=== PATIENT | male | born 1985 | race Caucasian/White ===

== ENCOUNTER 2016-02-18 12:27 | Emergency (ER) | payer OTHER ==
[~2016-02-18] VITALS: Ht 182.9 cm; Wt 115.7 kg
[~2016-02-18 12:27] MED LIST: IBU800 MG PO
--- NOTE | 2016-02-18 15:50 | ED UPPER/LOWER EXTREMITY COMPL ---
History of Present Illness General Chief Complaint: Lower Extremity Problems Stated Complaint: RIGHT FOOT PAIN Source: patient Exam Limitations: no limitations Vital Signs & Intake/Output Vital Signs & Intake/Output Vital Signs Date Time Temp Pulse Resp B/P Pulse O2 O2 Flow FiO2 Ox Delivery Rate 02/17 1242 98.6 82 16 143/88 97 Room Air Allergies Coded Allergies: NO KNOWN ALLERGIES (10/14/12) Reconcile Medications Colchicine 0.6 MG TABLET 1 TAB PO AD GOUT 2 TABS PO NOW, 1 TAB IN 1 HOUR, THEN 1 TAB PO BID Ibuprofen (Ibu) 800 MG TAB 1 TAB PO TID PAIN/SWELLING Indomethacin 50 MG CAPSULE 1 CAP PO TID PRN PAIN with food Oxycodone HCl/Acetaminophen (Percocet 5-325 MG Tablet) 5 MG-325 MG TABLET 1 TAB PO TID PRN PAIN Triage Note: PT TO TRIAGE WITH C/O R ANKLE SWELLING AND PAIN 10/ SINCE THIS MORNING. DENIES ANY INJURY. ?GOUT. PTS FATHER AND BROTHER HAVE HX OF GOUT. Triage Nurses Notes Reviewed? yes HPI: WOKE WITH SEVERE R SIDE ANKLE AND FOOT PAIN, NO TRAUMA. HX OF SAME 1 YEAR AGO. NO DIAGNOSIS WAS MAKE. TX WITH ALEVE WITHOUT RELIEF. UNABLE TO WALK DUE TO THE PAIN. HAS PAIN AT REST THAT IS POSITIONAL. He complains of swelling to the dorsum of the foot in pain when moving his great toe. His father and brother both have gout. States he has been drinking a lot of beer recently. Patient notes that when he woke up this morning the weight of the bed sheets were causing severe pain to his foot and toe Past History Travel History Traveled to [place] past 21 day No Medical History Any Pertinent Medical History? none Surgical History Surgical History: none Psychosocial History What is your primary language French Tobacco Use: Never used Family History Hx Contributory? No Review of Systems Review of Systems Constitutional: Reports: see HPI. EENTM: Reports: no symptoms. Respiratory: Reports: no symptoms. Cardiovascular: Reports: no symptoms. Gastrointestinal/Abdominal: Reports: no symptoms. Genitourinary: Reports: no symptoms. Musculoskeletal: Reports: see HPI. Skin: Reports: no symptoms. Neurological/Psychological: Reports: no symptoms. Hematologic/Endocrine: Reports: no symptoms. Immunological: Reports: no symptoms. All Other Systems: Reviewed and Negative Physical Exam Physical Exam General Appearance: well developed/nourished Comments: Well-developed well-nourished no apparent distress. HEENT: Atraumatic, extraocular motion intact Neck: Supple, no lymphadenopathy Back: Nontender Respiratory: No respiratory distress Extremities: No edema, full range of motion Neuro: Alert and oriented x3 Psych: Mood affect normal, normal memory normal judgment. Skin: Warm and dry, no rash on exposed skin Bilateral lower extremities examined, right lower extremity, right foot dorsum, first metatarsal pharyngeal joint with moderate swelling and moderate warmth. Increased pain with range of motion of the first metatarsal pharyngeal joint . Minimal pain of range of motion of the second. Neurovascularly intact. No ecchymosis. There is mild swelling noted throughout the dorsum of the foot. There is no erythema Progress Differential Diagnosis: arterial insufficiency, cellulitis, CHF, compartment syndrome, contusion, dislocation, DVT, fracture, gout, septic arthritis, sprain, tendon injury Plan of Care: Orders Procedure Date/time Status Durable Medical Equipment 02/17 1601 Active Comments: Signs and symptoms consistent with gout, treated with Toradol 30 mg IM and 1 Percocet, given crutches. Elevation, ice, colchicine and indomethacin and Percocet prescribed, recommend following up with primary care doctor if no better in 5 days Departure Departure Disposition: HOME OR SELF CARE Condition: Stable Clinical Impression Primary Impression: Gout Qualifiers: Gout site: foot Gout etiology: idiopathic Laterality: right Chronicity: acute Qualified Code: M10.071 - Idiopathic gout, right ankle and foot Referrals: SAUNDRA COLÓN,BUZZ JONES (PCP/Family) Additional Instructions: Ice, elevate, avoid foods such as redness, shellfish, beer, cheese Take indomethacin for inflammation, Percocet for pain and colchicine for treatment of gout. Use crutches as needed for the next few days. Symptoms will last for about 3-5 days. Follow-up with your primary care doctor or orthopedist if no better after that Departure Forms: Customer Survey General Discharge Information Prescriptions: Current Visit Scripts Oxycodone HCl/Acetaminophen (Percocet 5-325 MG Tablet) 1 TAB PO TID PRN PAIN #15 TAB Colchicine 1 TAB PO AD #10 TAB 2 TABS PO NOW, 1 TAB IN 1 HOUR, THEN 1 TAB PO BID Indomethacin 1 CAP PO TID PRN PAIN #30 CAP with food
[2016-02-18] MEDS ORDERED: PERCOCET 5-3251 EACH PO (16:05)
[2016-02-18] MEDS ORDERED: COLCHICINE0.6 M2 PO (16:05)
[2016-02-18] MEDS ORDERED: INDOMETHACIN50 M1 PO (16:05)
[2016-02-18 16:18] VITALS: BP 126/85
== END 2016-02-18 16:19 ==
LOC: ERH 12:27
DX: M10.9 Gout, unspecified (principal)
CPT/HCPCS: 96372; J1885

== ENCOUNTER 2016-03-13 20:56 | Emergency (ER) | payer OTHER ==
[~2016-03-13] VITALS: Ht 180.3 cm; Wt 115.7 kg
[~2016-03-13 20:56] MED LIST changes: +COLCHICINE0.6 M2 PO; +INDOMETHACIN50 M1 PO; +PERCOCET 5-3251 EACH PO
[2016-03-13 21:07] VITALS: BP 143/87
[2016-03-13] MEDS ORDERED: INDOMETHACIN50 M1 PO (21:27)
[2016-03-13] MEDS ORDERED: COLCHICINE0.6 M2 PO (21:27)
--- NOTE | 2016-03-13 21:28 | ED UPPER/LOWER EXTREMITY COMPL ---
History of Present Illness General Chief Complaint: General Adult Stated Complaint: GOUT Source: patient Exam Limitations: no limitations Allergies Coded Allergies: NO KNOWN ALLERGIES (10/14/12) Triage Note: PRESENTS TO ED FOR EVALUATION OF POSSIBLE GOUT OF THE RIGHT FOOT. + HX OF THE SAME. Triage Nurses Notes Reviewed? yes HPI: This patient is a 31-year-old male with a past medical history including gout who presented to the emergency department today for evaluation of pain in his right ankle. The patient reported that yesterday he started to feel a tightness in his ankle which progressed to a slight pain in the evening. The patient woke up this morning with 8 out of 10, throbbing pain in the outside of his right ankle. The patient denied any pain in his foot or toes. He denied any trauma to the area. The patient reported that he was treated for gout approximately 3 weeks ago. The patient reported that he thinks that this may be another episode of gout. The patient denied any calf pain, knee pain, or hip pain. No fevers or chills. The patient took a naproxen this morning. (YAEL MORRIS,LINCOLN) Vital Signs & Intake/Output Vital Signs & Intake/Output Vital Signs Date Time Temp Pulse Resp B/P Pulse O2 O2 Flow FiO2 Ox Delivery Rate 03/13 2140 Room Air 03/13 2107 98.5 91 18 143/87 96 Room Air ED Intake and Output 03/14 0000 03/13 1200 Intake Total Output Total Balance Patient 255 lb Weight Reconcile Medications Colchicine 0.6 MG TABLET 1 TAB PO AD GOUT 2 TABS PO NOW, 1 TAB IN 1 HOUR, THEN 1 TAB PO BID Colchicine 0.6 MG TABLET 1 TAB PO BID GOUT 2 TABS NOW, 1 TAB IN 1 HOUR, 1 TAB BID THEREAFTER Ibuprofen (Ibu) 800 MG TAB 1 TAB PO TID PAIN/SWELLING Indomethacin 50 MG CAPSULE 1 CAP PO TID PRN PAIN with food Indomethacin 50 MG CAPSULE 1 CAP PO TID GOUT with food Oxycodone HCl/Acetaminophen (Percocet 5-325 MG Tablet) 5 MG-325 MG TABLET 1 TAB PO TID PRN PAIN (VENITA COLÓN,JESUS Jones) Past History Travel History Traveled to [place] past 21 day No Medical History Any Pertinent Medical History? see below for history Musculoskeletal: gout Surgical History Surgical History: none Psychosocial History What is your primary language Bulgarian Tobacco Use: Never used Family History Hx Contributory? No (LINCOLN CONLEY PA-C) Review of Systems Review of Systems Constitutional: Reports: no symptoms. EENTM: Reports: no symptoms. Respiratory: Reports: no symptoms. Cardiovascular: Reports: no symptoms. Gastrointestinal/Abdominal: Reports: no symptoms. Musculoskeletal: Reports: see HPI. Skin: Reports: no symptoms. Neurological/Psychological: Reports: no symptoms. All Other Systems: Reviewed and Negative (LINCOLN CONLEY PA-C) Physical Exam Physical Exam General Appearance: well developed/nourished, no apparent distress, alert, awake Comments: Well-developed well-nourished person in no acute distress HEENT: Normal EENT exam, head normocephalic, moist mucous membranes Neck: Supple Back: Antalgic gait Respiratory: No respiratory distress. Speaking in full sentences Right lower extremity: No effusions overlying erythema or ecchymosis the joint spaces. Mild amount of edema noted to the lateral malleolus. Tenderness to palpation over the lateral malleolus. Range of motion is limited due to pain. Full range of motion at the knee and hip. No bony or muscular deformities noted. Dorsalis pedis and posterior tibialis pulses 2+ and strong. Capillary refill less than 2 seconds Neuro: Alert oriented x3, cranial nerves II through XII grossly intact. Skin: No appreciable rash on exposed skin, skin is warm and dry. Psych: Mood and affect is normal, memory and judgment is normal. (LINCOLN CONLEY PA-C) Progress Differential Diagnosis: arterial insufficiency, cellulitis, CHF, compartment syndrome, contusion, dislocation, DVT, fracture, gout, septic arthritis, sprain, tendon injury Plan of Care: This patient is a 31-year-old male who presented to the emergency department today for evaluation of acute onset of right ankle pain. History of gout. No trauma to the area. Based on this patient's history and physical examination, likely gout flare. This patient will be started on outpatient treatment for his gout. (LINCOLN CONLEY PA-C) Departure Departure Disposition: HOME OR SELF CARE Condition: Stable Clinical Impression Primary Impression: Gout attack Qualifiers: Gout site: ankle Gout etiology: unspecified cause Laterality: right Qualified Code: M10.9 - Gout, unspecified Referrals: UNKNOWN (PCP/Family) Additional Instructions: Take colchicine and indomethacin as prescribed. Continue to take naproxen as previously directed. Return to the emergency department for any worsening symptoms or concerns. Departure Forms: Customer Survey General Discharge Information Prescriptions: Current Visit Scripts Colchicine 1 TAB PO BID #60 TAB 2 TABS NOW, 1 TAB IN 1 HOUR, 1 TAB BID THEREAFTER Indomethacin 1 CAP PO TID #30 CAP with food (LINCOLN CONLEY PA-C) PA/WINDOWS ADMINISTRATOR Co-Sign Statement Statement: ED Attending supervision documentation- [] I saw and evaluated the patient. I have also reviewed all the pertinent lab results and diagnostic results. I agree with the findings and the plan of care as documented in the PA's/WINDOWS ADMINISTRATOR's documentation. [x] I have reviewed the ED Record and agree with the PA's/WINDOWS ADMINISTRATOR's documentation. [] Additions or exceptions (if any) to the PAs/WINDOWS ADMINISTRATOR's note and plan are summarized below: [] (VENITA COLÓN,JESUS Jones)
== END 2016-03-13 21:42 ==
LOC: ERH 20:56
DX: M1A.9XX0 Chronic gout, unspecified, without tophus (tophi) (principal)